=== PATIENT | male | born 1960 | race Caucasian/White ===

== ENCOUNTER 2017-11-21 04:27 | Emergency (ER) | payer OTHER, SELFPAY ==
[2017-11-21 04:32] VITALS: BP 134/73; PULSE 86; RESP 16; TEMP 36.6; O2SAT 98; BMI 25.0
[2017-11-21 04:50] LABS: Adenovirus F 40/41, stool Not Detected (NotDetected); Astrovirus Not Detected (NotDetected); Campylobacter Not Detected (NotDetected); Clostridium Difficile A/B, PCR Not Detected (NotDetected); Cryptosporidium Not Detected (NotDetected); Cyclospora Cayetanesis Not Detected (NotDetected); Entamoeba histolytica Not Detected (NotDetected); Enteroaggregative E coli Not Detected (NotDetected); Enteropathogenic E coli Not Detected (NotDetected); Enterotoxigenic E coli Not Detected (NotDetected); Giardia lamblia Not Detected (NotDetected); Microscopic, Urine URINE MICROSCOPIC (MICROSCOPIC); Norovirus Not Detected (NotDetected); Plesimonas Shigalloides, PCR Not Detected (NotDetected); Rotavirus A Not Detected (NotDetected); Salmonella, PCR Not Detected (NotDetected); Sapovirus Not Detected (NotDetected); Shiga-like toxin E coli Not Detected (NotDetected); Shigella Enterovasive E coli Not Detected (NotDetected); Vibrio Cholerae Not Detected (NotDetected); Vibrio, PCR Not Detected (NotDetected); Yersinia Entercolitica, PCR Not Detected (NotDetected)
--- NOTE | 2017-11-21 04:51 | CT_ITS ---
CT abdomen pelvis w con CLINICAL INDICATION: Abdominal pain with nausea, recent history of diverticulitis with patient on antibiotics ITS.REASON: ABD PAIN ORDERING PHYSICIAN: Toño Irwin MD PATIENT AGE: 57 years COMPARISON: None TECHNIQUE: Axial images obtained with sagittal and coronal reformats. PROCEDURE: Oral Contrast: Gastroview IV Contrast: 75 mL of [id number]. FINDINGS: Lung bases are clear. 4 mm isodensity right hepatic lobe laterally to small characterize and may be due to small cyst. The remaining liver unremarkable. No calcified gallstones or ductal dilatation. Spleen, adrenal glands, pancreas, and kidneys have an unremarkable appearance. No obstructing renal or ureteral calculi. Tiny umbilical hernia containing fat. Unremarkable appendix. No intestinal obstruction or free air. There is diffuse colonic diverticulosis involving the descending and sigmoid colon. No convincing evidence of acute diverticulitis. No abscess or free air. No abnormal fluid collection. Prostate is enlarged at 5 cm. Degenerative changes are present in the lumbar spine. IMPRESSION: 1. Diverticulosis without evidence of acute diverticulitis. 2. No acute abdominal or pelvic findings. 3. Prostatomegaly
[2017-11-21 05:06] LABS: Lipase 232 u/L (73-393)
[2017-11-21 05:11] LABS: Alanine Aminotransferase 36 U/L (12-78); Albumin/Globulin Ratio 1.4 (1.1-1.8); Alkaline Phosphatase 51 U/L (46-116); Amylase 52 U/L (25-125); Anion Gap 11.3 mEq/L (5-15); Aspartate Amino Transferase 23 U/L (15-37); Bilirubin,Total 1.1 mg/dL (0.2-1.0); Blood Urea Nitrogen 10 mg/dL (7-18); Calcium 8.7 mg/dL (8.5-10.1); Carbon Dioxide 28 mmol/L (21.0-32.0); Chloride 103 mmol/L (98-107); Creatinine Clearance Estimated 79 mL/min (0-300); Creatinine,Serum 1.12 mg/dL (0.70-1.30); Estimated Glomerular Filt Rate 67 ml/min (>60); GFR (African American) 81 ML/MIN (>60); Globulin 2.9 gm/dl (1.3-3.2); Glucose 114 mg/dL (74-106); Potassium 4.3 mmoL/L (3.5-5.1); Sodium 138 mmol/L (136-145); Total Protein,Serum 6.9 gm/dL (6.4-8.2)
--- NOTE | 2017-11-21 05:24 | [facility].EDNVD ---
ED Disposition Clinical Impression: Gastroenteritis Disposition: Home, Self-Care Condition on Discharge: Good Instructions: DI for Nausea -- Adult Additional Instructions: stop abx - Critical Care Critical Care Time: No Attestation: On 11/21/17, the high probability of a clinically significant, sudden or life threatening deterioration of the following system(s) required my full and direct attention, intervention and personal management. The time I documented below is in addition to time spent performing reported procedures but includes the following listed in this critical care notation. Medical Decision Making - Medical Records Medical records reviewed: Yes: I reviewed the patient's medical records. Vital Signs: 11/21/17 04:32 Temperature 98 F Temperature Source Oral Pulse Rate [Right Brachial] 86 Respiratory Rate 16 Blood Pressure [Right Arm] 134/73 Blood Pressure Mean [Right Arm] 93 Blood Pressure Source [Right Arm] Automatic Cuff Blood Pressure Position [Right Arm] Sitting 02 Sat by Pulse Oximetry 98 Oxygen Delivery Method Room Air - Lab Data Lab results reviewed: Yes: I reviewed the patient's lab results. Lab Results 11/21/17 04:45: Urine Color Yellow, Urine Appearance Clear, Urine pH 5.5, Ur Specific Portia >= 1.030, Urine Protein Negative, Urine Glucose (UA) Negative, Urine Ketones Negative, Urine Blood Negative, Urine Nitrate Negative, Urine Bilirubin Negative, Urine Urobilinogen 0.2, Ur Leukocyte Esterase Trace, Urine WBC 3-5, Urine Mucus 4+ 11/21/17 04:45: Stl Aeromonas (PCR) Not detected, Stl C. cayetanensis PCR Not detected, Stool Rotavirus (PCR) Not detected, Stl Adenov F 40/41 PCR Not detected, Stool Astrovirus (PCR) Not detected, Stool Cryptosporidium PCR Not detected, Stl E.coli Shiga Tox PCR Not detected, Stool E coli O157 PCR Not detected, Stl Enterotoxigenic E PCR Not detected, Stool EPEC (PCR) Not detected, Stool EAEC (PCR) Not detected, Stl E. histolytica PCR Not detected, Stool Giardia Lamblia PCR Not detected, Stool Sapovirus (PCR) Not detected, Stl P. shigelloides PCR Not detected, Stl Shigella/EIEC PCR Not detected, St Y.enterocolitica PCR Not detected, Stool Vibrio (PCR) Not detected, Stl Vibrio cholerae PCR Not detected, Stl Norovirus GI/GII PCR Not detected, Campylobacter (PCR) Not detected, C. difficile (PCR) Not detected, Salmonella (PCR) Not detected 11/21/17 04:50: WBC 6.1, RBC 5.73, Hgb 17.0, Hct 50.3, MCV 87.8, MCH 29.6, MCHC 33.7, RDW 13.3, Plt Count 267, MPV 9.2, Neut % (Auto) 55.5, Lymph % (Auto) 31.6, [place] % (Auto) 9.1, Eos % (Auto) 2.5, Baso % (Auto) 1.2, Neut # (Auto) 3.4, Lymph # (Auto) 1.9, [place] # (Auto) 0.6, Eos # (Auto) 0.2, Baso # (Auto) 0.1 11/21/17 04:50: Sodium 138, Potassium 4.3, Chloride 103, Carbon Dioxide 28, Anion Gap 11.3, BUN 10, Creatinine 1.12, Estimated Creat Clear 79, Estimated GFR 67, Est GFR ( Amer) 81, Glucose 114 H, Calcium 8.7, Total Bilirubin 1.1 H, AST 23, ALT 36, Alkaline Phosphatase 51, Total Protein 6.9, Albumin 4.0, Globulin 2.9, Albumin/Globulin Ratio 1.4, Amylase 52 11/21/17 04:50: Lipase 232 11/21/17 04:50: ESR 7 Result diagrams: 11/21/17 04:50 11/21/17 04:50 Orders (Tests/Meds): ED MEDICATIONS Discontinued Medications Generic Name Dose Route Start Last Admin Trade Name Himanshuq PRN Reason Stop Dose Admin Lactated Ringer's 1,000 mls @ 999 mls/hr 11/21/17 05:30 11/21/17 05:37 Lactated Ringer's 1000 Ml Bag IV 11/21/17 06:30 999 mls/hr .[id number] [facility] Administration ORDERS Category Date Time Status CT abdomen pelvis w con Stat Cat Scan 11/21/17 04:51 Taken - CT Data CT Scan: Abdomen, Pelvis Time Received: 07:[address] Reviewed: Yes: I have viewed the radiologist's interpretation Preliminary Findings: Normal/NAD - [place] Inquiry Pt receiving controlled substance: No Nausea/Vomiting/Diarrhea HPI - General Chief complaint: Nausea/Vomiting/Diarrhea Stated complaint: nausea and chills Time Seen by Pr
[2017-11-21 05:28] LABS: Basophils # 0.1 K/mm3 (0-0.2); Basophils % 1.2 % (0.1-2.0); Eosinophils # 0.2 K/mm3 (0.0-0.4); Eosinophils % 2.5 % (0.1-12.0); Hematocrit 50.3 % (42.0-52.0); Lymphocytes # 1.9 K/mm3 (0.7-4.5); Lymphocytes % 31.6 K/mm3 (10-50); Mean Corpuscular HGB Conc 33.7 g/dL (31.8-35.4); Mean Corpuscular Hemoglobin 29.6 pg (27.0-31.2); Mean Corpuscular Volume 87.8 fl (80-94); Mean Platelet Volume 9.2 fl (7.4-10.4); Monocytes # 0.6 K/mm3 (0.1-1.0); Monocytes % 9.1 % (1.7-9.3); Neutrophils # 3.4 K/mm3 (1.8-7.8); Neutrophils % 55.5 % (37.0-80.0); Platelet Count 267 K/mm3 (142-424); Red Blood Count 5.73 M/mm3 (4.60-6.20); Red Cell Distribution Width 13.3 % (11.5-17.5); White Blood Count 6.1 K/mm3 (4.8-10.8)
--- NOTE | 2017-11-21 05:28 | ED_ITS ---
ED Disposition Clinical Impression: Gastroenteritis Disposition: Home, Self-Care Condition on Discharge: Good Instructions: DI for Nausea -- Adult Additional Instructions: stop abx - Critical Care Critical Care Time: No Attestation: On 11/21/17, the high probability of a clinically significant, sudden or life threatening deterioration of the following system(s) required my full and direct attention, intervention and personal management. The time I documented below is in addition to time spent performing reported procedures but includes the following listed in this critical care notation. Medical Decision Making - Medical Records Medical records reviewed: Yes: I reviewed the patient's medical records. Vital Signs: 11/21/17 04:32 Temperature 98 F Temperature Source Oral Pulse Rate [Right Brachial] 86 Respiratory Rate 16 Blood Pressure [Right Arm] 134/73 Blood Pressure Mean [Right Arm] 93 Blood Pressure Source [Right Arm] Automatic Cuff Blood Pressure Position [Right Arm] Sitting 02 Sat by Pulse Oximetry 98 Oxygen Delivery Method Room Air - Lab Data Lab results reviewed: Yes: I reviewed the patient's lab results. Lab Results 11/21/17 04:45: Urine Color Yellow, Urine Appearance Clear, Urine pH 5.5, Ur Specific Arnett >= 1.030, Urine Protein Negative, Urine Glucose (UA) Negative, Urine Ketones Negative, Urine Blood Negative, Urine Nitrate Negative, Urine Bilirubin Negative, Urine Urobilinogen 0.2, Ur Leukocyte Esterase Trace, Urine WBC 3-5, Urine Mucus 4+ 11/21/17 04:45: Stl Aeromonas (PCR) Not detected, Stl C. cayetanensis PCR Not detected, Stool Rotavirus (PCR) Not detected, Stl Adenov F 40/41 PCR Not detected, Stool Astrovirus (PCR) Not detected, Stool Cryptosporidium PCR Not detected, Stl E.coli Shiga Tox PCR Not detected, Stool E coli O157 PCR Not detected, Stl Enterotoxigenic E PCR Not detected, Stool EPEC (PCR) Not detected , Stool EAEC (PCR) Not detected, Stl E. histolytica PCR Not detected, Stool Giardia Lamblia PCR Not detected, Stool Sapovirus (PCR) Not detected, Stl P. shigelloides PCR Not detected, Stl Shigella/EIEC PCR Not detected, St Y.enterocolitica PCR Not detected, Stool Vibrio (PCR) Not detected, Stl Vibrio cholerae PCR Not detected, Stl Norovirus GI/GII PCR Not detected, Campylobacter (PCR) Not detected, C. difficile (PCR) Not detected, Salmonella (PCR) Not detected 11/21/17 04:50: WBC 6.1, RBC 5.73, Hgb 17.0, Hct 50.3, MCV 87.8, MCH 29.6, MCHC 33.7, RDW 13.3, Plt Count 267, MPV 9.2, Neut % (Auto) 55.5, Lymph % (Auto) 31.6 , [place] % (Auto) 9.1, Eos % (Auto) 2.5, Baso % (Auto) 1.2, Neut # (Auto) 3.4, Lymph # (Auto) 1.9, [place] # (Auto) 0.6, Eos # (Auto) 0.2, Baso # (Auto) 0.1 11/21/17 04:50: Sodium 138, Potassium 4.3, Chloride 103, Carbon Dioxide 28, Anion Gap 11.3, BUN 10, Creatinine 1.12, Estimated Creat Clear 79, Estimated GFR 67, Est GFR ( Amer) 81, Glucose 114 H, Calcium 8.7, Total Bilirubin 1.1 H, AST 23, ALT 36, Alkaline Phosphatase 51, Total Protein 6.9, Albumin 4.0, Globulin 2.9, Albumin/Globulin Ratio 1.4, Amylase 52 11/21/17 04:50: Lipase 232 11/21/17 04:50: ESR 7 Result diagrams: 11/21/17 04:50 11/21/17 04:50 Orders (Tests/Meds): ED MEDICATIONS Discontinued Medications Generic Name Dose Route Start Last Admin Trade Name Yessy PRN Reason Stop Dose Admin Lactated Ringer's 1,000 mls @ 999 mls/hr 11/21/17 05:30 11/21/17 05:37 Lactated Ringer's 1000 Ml Bag IV 11/21/17 06:30 999 mls/hr
[2017-11-21 05:35] LABS: Appearance,Urine CLEAR (Clear); Bilirubin,Urine Negative (Negative); Blood, Urine Negative (Negative); Color,Urine YELLOW (Yellow); Glucose,Urine (UA) Negative (Negative); Ketones,Urine Negative (Negative); Leukocyte Esterase,Urine TRACE (Negative); Nitrate,Urine Negative (Negative); PH,Urine 5.5 (5.0-8.5); Protein,Urine Negative (Negative); Specific Gravity, Urine >= 1.030 (1.005-1.030); Urobilinogen,Urine 0.2 EU/dl (0.2)
[2017-11-21 05:42] LABS: Mucus,Urine 4+ /lpf
[2017-11-21 06:29] LABS: Erythrocyte Sedimentation Rate 7 mm/hr (0-20)
[2017-11-21 07:12] VITALS: BP 141/70; PULSE 92; RESP 18; TEMP 36.9; O2SAT 96
== END 2017-11-21 07:12 | disposition home or self-care (01) ==
PROVIDERS: Emergency Provider Emergency Medicine; Family Provider Family Medicine
DX: K52.9 Noninfective gastroenteritis and colitis, unspecified (principal); F12.10 Cannabis abuse, uncomplicated
CPT/HCPCS: 74177; 80053; 81001; 82150; 83690; 85025; 85651; 87507; 96365; 99283; Q9967